=== PATIENT | female | born 1995 | race Caucasian/White ===

== ENCOUNTER 2019-01-04 06:34 | Inpatient (IN) ==
[~2019-01-04 06:34] MED LIST: D5 1/2 NS 1000 ML 1,000 ML IV ONE; D5 1/2 NS 1L W PITOCIN 20 UNITS/L 20 UNITS/1,000 ML BAG IV ONE; D5LR 1L W PITOCIN 10 UNITS/L 10 UNITS/1,000 ML BAG IV ONE; LR 1000 ML IV 1,000 ML IV ONE; PITOCIN ONE
[2019-01-04] MEDS ORDERED: D5LR 1L W PITOCIN 10 UNITS/L 10 UNITS/1,000 ML BAG IV PRN (06:49)
[2019-01-04] MEDS ORDERED: REGLAN INJ 10 MG VIAL IVP PRN (06:49)
[2019-01-04] MEDS ORDERED: PHENERGAN INJ 25 MG IM PRN ×2 (06:49→10:26)
[2019-01-04] MEDS ORDERED: MORPHINE SULFATE INJ 2 MG INJ IVP PRN (06:49)
[2019-01-04] MEDS ORDERED: PITOCIN IVP ONE (06:49)
[2019-01-04] MEDS ORDERED: D5 1/2 NS 1000 ML 1,000 ML IV SCH (06:49)
[2019-01-04] MEDS ORDERED: NUBAIN INJ 200 MG VIAL MULTIDOSE IVP PRN (06:49)
--- NOTE | 2019-01-04 07:15 | DR.OB ---
OB Quick Note - Assessment/Plan Assessment/Plan: L&D 01/04/19 at 7:00am S-No complaint. O-Afebrile,VSS ZFC=[id number] with good LTV, +accel, no decel. CTX=irregular, mild CVX=3cm/75%/-1/VTX AROM with clear fluid. IUPC and FSE placed. A-IUP at 39 3/7 weeks for induction Rh- P-Begin pitocin induction Anticipate
[2019-01-04] MEDS ORDERED: NUBAIN INJ 10 ONE (09:13)
[2019-01-04] MEDS ORDERED: FENTANYL INJ 100 mcg ONE (09:39)
[2019-01-04] MEDS ORDERED: NAROPIN EPIDURAL 0.2% + FENTANYL 90MCG 0 ML EPI ONE (09:40)
[2019-01-04] MEDS ORDERED: MOTRIN TAB 800 MG PO PRN (10:26)
[2019-01-04] MEDS ORDERED: HYPERRHO S/D (or RHOGAM) IM PRN (11:45)
[2019-01-04] MEDS ORDERED: ADACEL or BOOSTRIX TDaP VACCINE IM ONE ×2 (11:45→18:42)
[2019-01-04] MEDS ORDERED: AMBIEN PO PRN (11:45)
[2019-01-04] MEDS ORDERED: MILK OF MAGNESIA PO PRN (11:45)
[2019-01-04] MEDS ORDERED: DERMOPLAST SPRAY TOP PRN (11:45)
[2019-01-04] MEDS ORDERED: BENADRYL INJ 50 MG VIAL IVP PRN (12:58)
[2019-01-04] MEDS: D5 1/2 NS 1000 ML 1,000 ML with PITOCIN 20 UNITS IV SCH ×4 (13:57→20:55)
--- NOTE | 2019-01-04 14:26 | DR.OB ---
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 Head delivered over intact perineum. Nuchal cord x 1 reduced. Nose and mouth bulb suctioned. Body delivered over intact perineum. Cord clamped x 2 and cut. Infant handed to attendant. Cord sent for gases. Placenta delivered spontaneously / intact / 3 vessel cord. No CVX / vaginal / perineal tears noted. Viable female , VTX/OA, wt=8'6" and 8/9, stable to NBN. Mother stable to RR. PKH=[id number].
[2019-01-04] MEDS: ZANTAC PO SCH (20:56)
[2019-01-05] MEDS: D5 1/2 NS 1000 ML 1,000 ML with PITOCIN 20 UNITS IV SCH ×2 (03:38)
[2019-01-05 05:17] LABS: HEMATOCRIT 28.7 % (36.0-47.0); HEMOGLOBIN 9.8 g/dL (12.0-16.0)
[2019-01-05] MEDS ORDERED: AFLURIA II4 or FLUARIX II4 IM ONE (08:16)
[2019-01-05] MEDS: ZANTAC PO SCH (08:20)
[2019-01-05] MEDS ORDERED: PRENATAL PLUS PO SCH (09:00)
[2019-01-05 12:17] VITALS: BP 115/77
== END 2019-01-05 12:50 | disposition home or self-care (01) | DRG 806 ==
LOC: LD 06:34 → MED/SURG 11:40
PROVIDERS: ADMIT Specialist; ATTEND Specialist
DX: Z3A.39 39 weeks gestation of pregnancy; Z23 Encounter for immunization; O47.1 False labor at or after 37 completed weeks of gestation; Z01.812 Encounter for preprocedural laboratory examination; O36.0930 Maternal care for other rhesus isoimmunization, third trimester, not applicable or unspecified; Z01.818 Encounter for other preprocedural examination; Z37.0 Single live birth
CPT/HCPCS: 36415; 59025; 59409; 80048; 80307; 81001; 85014; 85018; 85025; 86592; 86850; 86900; 86901; 90674; 90686; 90715; 99284; A4216; A4222; S0197; G0434; J1200; J2300; J2590; J3010; J7120; S5010

== ENCOUNTER 2020-07-23 06:32 | Inpatient (IN) ==
[2020-07-21 11:37] LABS: BASOPHILS % (AUTO) 0.2 % (0.2-1.0); EOSINOPHILS % (AUTO) 0.6 % (0.9-2.9); HEMATOCRIT 32.5 % (36.0-47.0); LYMPHOCYTES # (AUTO) 1.6 X10^3/uL (1.3-2.9); LYMPHOCYTES % (AUTO) 20.2 % (21.0-51.0); MEAN CORPUSCULAR HEMOGLOBIN 28.3 pg (27.0-34.0); MEAN CORPUSCULAR VOLUME 83.4 fL (80.0-100.0); MEAN PLATELET VOLUME 8.1 fL (7.4-11.0); MONOCYTES # (AUTO) 0.7 x10^3/uL (0.3-0.8); MONOCYTES % (AUTO) 8.2 % (0.0-13.0); NEUTROPHILS # (AUTO) 5.7 x10^3/uL (2.2-4.8); NEUTROPHILS % (AUTO) 70.8 % (42.0-75.0); PLATELET COUNT 238 X10^3/uL (150.0-450.0); WHITE BLOOD COUNT 8.1 X10^3/uL (3.6-10.0)
[2020-07-21 11:45] LABS: BILIRUBIN,URINE NEGATIVE (NEGATIVE); BLOOD/HEMOGLOBIN,URINE NEGATIVE (NEGATIVE); GLUCOSE, URINE NEGATIVE (NEGATIVE); KETONES,URINE NEGATIVE (NEGATIVE); LEUKOCYTE ESTERASE ,URINE 1+ (NEGATIVE); NITRITES,URINE NEGATIVE (NEGATIVE); PROTEIN,URINE NEGATIVE (NEGATIVE); UROBILINOGEN,URINE NORMAL (NORMAL)
[2020-07-21 11:56] LABS: BLOOD UREA NITROGEN 7 mg/dL (7-18); CALCIUM 9.3 mg/dL (8.5-10.1); CARBON DIOXIDE 24.1 mmol/L (21-32); CHLORIDE 103 mmol/L (98-107); CREATININE 0.74 mg/dL (0.55-1.02); SODIUM 136 mmol/L (136-145); eGFR NON BLACK RACES > 60 (>60)
[2020-07-21 11:57] LABS: APPEARANCE,URINE CLEAR (CLEAR); COLOR,URINE YELLOW (YELLOW)
[2020-07-21 12:02] LABS: BACTERIA,URINE TRACE /HPF (NEGATIVE); RBC,URINE NONE SEEN /HPF (0-3); SQUAMOUS EPITHELIAL CELL,UR MODERATE /HPF (NEGATIVE)
[2020-07-23] MEDS ORDERED: D5 1/2 NS 1000 ML 1,000 ML IV ONE (06:37)
[2020-07-23] MEDS ORDERED: BETADINE SOLN ONE (06:37)
[2020-07-23] MEDS ORDERED: PITOCIN ONE (06:37)
[2020-07-23] MEDS ORDERED: D5 1/2 NS 1L W PITOCIN 20 UNITS/L 20 UNITS/1,000 ML BAG IV ONE (06:38)
[2020-07-23] MEDS ORDERED: D5LR 1L W PITOCIN 10 UNITS/L 10 UNITS/1,000 ML BAG IV ONE (06:38)
--- NOTE | 2020-07-23 07:11 | DR.OB ---
OB Quick Note - Assessment/Plan Assessment/Plan: L&D 07/23/20 at 7:00am S-No complaint. O-Afebrile,VSS CRF=496 with good LTV, +accel, no decel. CTX=occasional,mild CVX=3cm/50%/-1/VTX AROM with clear fluid. IUPC and FSE placed. A-IUP at 39 1/7 weeks for induction Rh- P-Begin pitocin induction Anticipate
[2020-07-23] MEDS ORDERED: D5 1/2 NS 1000 ML 1,000 ML IV SCH (07:23)
[2020-07-23] MEDS ORDERED: PHENERGAN INJ 25 MG IM PRN ×2 (07:23→10:50)
[2020-07-23] MEDS ORDERED: PITOCIN IVP ONE (07:23)
[2020-07-23] MEDS ORDERED: MORPHINE SULFATE INJ 2 MG INJ IVP PRN (07:23)
[2020-07-23] MEDS ORDERED: D5LR 1L W PITOCIN 10 UNITS/L 10 UNITS/1,000 ML BAG IV PRN (07:23)
[2020-07-23] MEDS ORDERED: REGLAN INJ 10 MG VIAL IVP PRN (07:23)
[2020-07-23] MEDS ORDERED: NUBAIN INJ 200 MG VIAL MULTIDOSE IVP PRN (07:23)
[2020-07-23] MEDS ORDERED: STADOL INJ IVP PRN (07:24)
[2020-07-23] MEDS ORDERED: STADOL INJ ONE (07:42)
[2020-07-23] MEDS ORDERED: FENTANYL INJ 100 mcg ONE (07:43)
[2020-07-23] MEDS ORDERED: LR 1000 ML IV 1,000 ML IV ONE (07:43)
[2020-07-23] MEDS ORDERED: NAROPIN EPIDURAL 0.2% 100 ML ONE (07:43)
[2020-07-23] MEDS ORDERED: D5 1/2 NS 1000 ML 1,000 ML with PITOCIN 20 UNITS IV SCH ×2 (11:00)
[2020-07-23] MEDS ORDERED: AMBIEN PO PRN (12:15)
[2020-07-23] MEDS ORDERED: MILK OF MAGNESIA PO PRN (12:15)
[2020-07-23] MEDS ORDERED: HYPERRHO S/D (or RHOGAM) IM PRN (12:15)
[2020-07-23] MEDS ORDERED: DERMOPLAST PAIN RELIEF SPRAY TOP PRN (12:15)
[2020-07-23] MEDS ORDERED: ADACEL or BOOSTRIX TDaP VACCINE IM ONE ×2 (12:15→16:39)
[2020-07-23] MEDS: MOTRIN TAB 800 MG PO PRN (16:20)
--- NOTE | 2020-07-23 17:29 | DR.OB ---
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 Head delivered over intact perineum. Nose and mouth bulb suctioned. No nuchal cord. Body delivered over intact perineum. Cord clamped x 2 and cut. Infant handed to attendant. Cord sent for gases. Placenta delivered spontaneously / intact / 3 vessel cord. No CVX / vaginal / perineal tears noted. Viable female infant, VTX/OA, wt=7'11" and 9/9, stable to NBN. Mother stable to RR. QVB=[id number].
[2020-07-24 04:22] LABS: HEMATOCRIT 33.8 % (36.0-47.0); HEMOGLOBIN 11.3 g/dL (12.0-16.0)
[2020-07-24] MEDS ORDERED: HYPERRHO S/D (or RHOGAM) IM ONE (06:18)
[2020-07-24] MEDS ORDERED: DEPO-PROVERA CONTRACEPTIVE INJ IM ONE (06:19)
[2020-07-24] MEDS ORDERED: PRENATAL PLUS PO SCH (09:00)
[2020-07-24] MEDS: MOTRIN TAB 800 MG PO PRN (09:42)
[2020-07-24 14:20] VITALS: BP 104/53
== END 2020-07-24 13:55 | disposition home or self-care (01) | DRG 806 ==
LOC: LD 06:32 → MED/SURG 11:47
PROVIDERS: ADMIT Specialist; ATTEND Specialist
DX: Z37.0 Single live birth; O36.0930 Maternal care for other rhesus isoimmunization, third trimester, not applicable or unspecified; Z20.822 Contact with and (suspected) exposure to COVID-19; Z29.13 Encounter for prophylactic Rho(D) immune globulin; O98.513 Other viral diseases complicating pregnancy, third trimester; Z3A.39 39 weeks gestation of pregnancy; Z23 Encounter for immunization; Z01.812 Encounter for preprocedural laboratory examination; Z01.818 Encounter for other preprocedural examination